=== PATIENT | female | born 1965 | race African-American/Black ===

== ENCOUNTER 2016-07-20 13:22 | Emergency (ER) | payer OTHER ==
[~2016-07-20] VITALS: Ht 167.6 cm; Wt 73.0 kg
[2016-07-20] MEDS ORDERED: METHADONE10 MG PO (13:51)
[2016-07-20 15:14] LABS: EOSINOPHIL (%) 1.9 % (0-5); EOSINOPHIL COUNT 0.1 K/uL (0-0.3); HEMATOCRIT 34.8 % (36.0-46.0); IMMATURE GRANULOCYTE (%) 0.3 % (0.0-0.7); INSTRUMENT ABS NEUTROPHIL CT 2.7 K/uL; LYMPHOCYTE COUNT 2.6 K/uL (1.0-2.8); MCH 28.2 PG (29.0-34.0); MCHC 35.6 G/DL (30.0-36.0); MCV 79.1 FL (83-99); MEAN PLAT.VOLUME 9.1 uM^3 (9.5-12.4); MONOCYTE (%) 7.7 % (3-12); MONOCYTE COUNT 0.5 K/uL (0-0.8); NEUTROPHIL (%) 45.6 % (45-76); NEUTROPHIL COUNT 2.7 K/uL (1.8-6.4); PLATELET COUNT 368 K/uL (156-360); RBC DIS.WIDTH-SD 40.2 % (39-53); WHITE BLOOD COUNT 5.9 K/uL (4.1-10.2)
[2016-07-20 15:22] LABS: CHLORIDE 103 mEq/L (99-109); POTASSIUM 4.4 mEq/L (3.7-5.4); SODIUM 135 mEq/L (136-147)
[2016-07-20 15:23] LABS: MAGNESIUM 1.9 mg/dL (1.3-2.7)
[2016-07-20 15:24] LABS: GLUCOSE 109 mg/dL (70-99)
[2016-07-20 15:25] LABS: ANION GAP 9 MEQ/L (2-14)
[2016-07-20 15:29] LABS: D-DIMER ELISA 0.28 mg/L FEU (< 0.57); INTER. NORMALIZED RATIO 1.1; PROTHROMBIN TIME 10.7 (9.2-11.2); PTT 30.1 (25-32); UREA NITROGEN (BUN) 20 mg/dL (9-23)
[2016-07-20 15:33] LABS: GFR ESTIMATE (CALCULATED) > 59 mL/min/
[2016-07-20 15:36] LABS: TROP-I INTERPRETATION NEGATIVE; TROPONIN-I < 0.01 ng/mL (0.0-0.30)
[2016-07-20 17:20] LABS: TROP-I INTERPRETATION NEGATIVE; TROPONIN-I < 0.01 ng/mL (0.0-0.30)
[2016-07-20 18:25] VITALS: BP 117/71
== END 2016-07-20 18:25 | disposition home or self-care (01) ==
LOC: EME 13:22
PROVIDERS: Emergency Medicine
DX: R07.9 Chest pain, unspecified (principal); F17.200 Nicotine dependence, unspecified, uncomplicated
CPT/HCPCS: 71010; 80048; 83735; 84484; 85025; 85379; 85610; 85730; 93005; 99281; 99284

== ENCOUNTER → 2016-11-22 | Outpatient (CLI) | payer OTHER ==
[~2016-11-22] MED LIST: METHADONE10 MG PO
== END | disposition home or self-care (01) ==
LOC: RAD 09:33
DX: Z02.71 Encounter for disability determination (principal)
CPT/HCPCS: 73560

== ENCOUNTER 2017-05-31 14:17 | Emergency (ER) | payer OTHER ==
[~2017-05-31] VITALS: Ht 167.6 cm; Wt 78.2 kg
[2017-05-31 17:32] LABS: BASOPHIL (%) 0.9 % (0-1); BASOPHIL COUNT 0.1 K/uL (0-0.1); EOSINOPHIL (%) 2.5 % (0-5); EOSINOPHIL COUNT 0.2 K/uL (0-0.3); HEMATOCRIT 34.8 % (36.0-46.0); HEMOGLOBIN 12.2 G/DL (11.9-15.5); IMMATURE GRANULOCYTE (%) 0.1 % (0.0-0.7); LYMPHOCYTE (%) 55.3 % (15-42); LYMPHOCYTE COUNT 3.7 K/uL (1.0-2.8); MCH 26.6 PG (29.0-34.0); MCHC 35.1 G/DL (30.0-36.0); MONOCYTE (%) 6.7 % (3-12); MONOCYTE COUNT 0.5 K/uL (0-0.8); NEUTROPHIL (%) 34.5 % (45-76); NEUTROPHIL COUNT 2.3 K/uL (1.8-6.4); PLATELET COUNT 232 K/uL (156-360); RBC DIS.WIDTH-CV 14.3 % (11.8-14.6); RBC DIS.WIDTH-SD 38.5 % (39-53); RED BLOOD COUNT 4.58 M/uL (3.80-5.20); WHITE BLOOD COUNT 6.7 K/uL (4.1-10.2)
[2017-05-31 17:41] LABS: ALBUMIN 3.7 g/dL (3.2-4.8); CHLORIDE 111 mEq/L (99-109); POTASSIUM 4.3 mEq/L (3.7-5.4); SODIUM 139 mEq/L (136-147)
[2017-05-31 17:43] LABS: GLUCOSE 77 mg/dL (70-99); TOTAL PROTEIN 8.3 g/dL (6.4-8.3)
[2017-05-31 17:45] LABS: TOTAL BILIRUBIN 0.3 mg/dL (0.0-1.0)
[2017-05-31 17:47] LABS: ALKALINE PHOSPHATASE 82 IU/L (3-129); CREATININE 0.9 mg/dL (0.6-1.3); GFR ESTIMATE (CALCULATED) > 59 mL/min/
[2017-05-31 17:48] LABS: AST (GOT) 103 IU/L (2-34); UREA NITROGEN (BUN) 16 mg/dL (9-23)
[2017-05-31 17:50] LABS: ALT (GPT) 66 IU/L (3-49); LIPASE 26 U/L (1.0-51.0)
[2017-05-31 17:56] LABS: QUANTITATIVE HCG < 4.0 MIU/ML
[2017-05-31 18:47] LABS: APPEARANCE CLEAR ((CLEAR)); BILIRUBIN NEGATIVE; BLOOD SMALL; COLOR YELLOW ((YELLOW)); GLUCOSE (STRIP) NEGATIVE; KETONES NEGATIVE; LEUKOCYTES NEGATIVE; NITRITE NEGATIVE; PROTEIN (STRIP) NEGATIVE; SPECIFIC GRAVITY 1.013 (1.000-1.030); UROBILINOGEN 0.2 MG/DL (0.2-1.0)
[2017-05-31] MEDS ORDERED: VALIUM5 MG PO (19:02)
[2017-05-31] MEDS ORDERED: ULTRAM50 MG PO (19:02)
[2017-05-31 19:05] LABS: BACTERIA NONE SEEN /HPF; EPITHELIAL CELLS RARE /HPF; MUCUS TRACE /LPF; RED BLOOD CELLS 0-5 /HPF (0-5); WHITE BLOOD CELLS 0-5 /HPF (0-5)
[2017-05-31 19:11] VITALS: BP 146/74
== END 2017-05-31 19:02 | disposition home or self-care (01) ==
LOC: EME 14:17
PROVIDERS: Physician Assistant
DX: M54.9 Dorsalgia, unspecified (principal); R10.9 Unspecified abdominal pain; F17.200 Nicotine dependence, unspecified, uncomplicated
CPT/HCPCS: 74176; 80053; 81003; 83690; 84702; 85025; 99281; 99284; J1885

== ENCOUNTER 2017-06-12 13:03 | Emergency (ER) | payer OTHER ==
[~2017-06-12] VITALS: Ht 167.6 cm; Wt 80.8 kg
[~2017-06-12 13:03] MED LIST changes: +ULTRAM50 MG PO; +VALIUM5 MG PO
[2017-06-12 13:55] LABS: HEMOGLOBIN 11.3 G/DL (11.9-15.5); MCH 27.2 PG (29.0-34.0); MCHC 35.3 G/DL (30.0-36.0); MCV 76.9 FL (83-99); NRBC (%) 0.3 /100 WBC (0-0); RBC DIS.WIDTH-CV 14.4 % (11.8-14.6); RED BLOOD COUNT 4.16 M/uL (3.80-5.20); WHITE BLOOD COUNT 6.2 K/uL (4.1-10.2)
[2017-06-12 14:01] LABS: ALBUMIN 3.7 g/dL (3.2-4.8); CHLORIDE 110 mEq/L (99-109); POTASSIUM 4.2 mEq/L (3.7-5.4); SODIUM 137 mEq/L (136-147)
[2017-06-12 14:03] LABS: GLUCOSE 72 mg/dL (70-99); TOTAL PROTEIN 8.3 g/dL (6.4-8.3)
[2017-06-12 14:05] LABS: TOTAL BILIRUBIN 0.5 mg/dL (0.0-1.0)
[2017-06-12 14:07] LABS: ALKALINE PHOSPHATASE 77 IU/L (3-129); CREATININE 0.9 mg/dL (0.6-1.3); GFR ESTIMATE (CALCULATED) > 59 mL/min/
[2017-06-12 14:08] LABS: UREA NITROGEN (BUN) 18 mg/dL (9-23)
[2017-06-12 14:09] LABS: AST (GOT) 130 IU/L (2-34)
[2017-06-12 14:10] LABS: ALT (GPT) 79 IU/L (3-49); LIPASE 21 U/L (1.0-51.0)
[2017-06-12 14:18] LABS: QUANTITATIVE HCG < 4.0 MIU/ML
[2017-06-12 14:46] LABS: APPEARANCE SL.HAZY ((CLEAR)); BILIRUBIN NEGATIVE; BLOOD NEGATIVE; COLOR YELLOW ((YELLOW)); GLUCOSE (STRIP) NEGATIVE; KETONES NEGATIVE; LEUKOCYTES SMALL; NITRITE NEGATIVE; PROTEIN (STRIP) NEGATIVE; SPECIFIC GRAVITY 1.013 (1.000-1.030); UROBILINOGEN 0.2 MG/DL (0.2-1.0)
[2017-06-12 14:58] LABS: BACTERIA NONE SEEN /HPF; EPITHELIAL CELLS 3+ /HPF; MUCUS TRACE /LPF; RED BLOOD CELLS 0-5 /HPF (0-5); UCUL ADDED? NO; WHITE BLOOD CELLS 0-5 /HPF (0-5)
[2017-06-12 15:04] LABS: PLAT.SUFFICIENCY ADEQUATE; PLATELET COUNT 225 K/uL (156-360)
[2017-06-12] MEDS ORDERED: PERCOCET 5/31 TABLET PO (17:58)
[2017-06-12] MEDS ORDERED: ZOFRAN ODT4 MG PO (17:58)
[2017-06-12] MEDS ORDERED: CITRATE OF MAG296 ML PO (18:00)
[2017-06-12] MEDS ORDERED: BENTYL10 MG PO (18:00)
[2017-06-12 18:52] VITALS: BP 103/81
== END 2017-06-12 18:53 | disposition home or self-care (01) ==
LOC: EME 13:03
DX: R10.9 Unspecified abdominal pain (principal); B19.20 Unspecified viral hepatitis C without hepatic coma; F17.200 Nicotine dependence, unspecified, uncomplicated
CPT/HCPCS: 74018; 76770; 80053; 81003; 83690; 84702; 85027; 99281; 99283; J3010